=== PATIENT | male | born 2000 | race Caucasian/White ===

== ENCOUNTER 2023-12-24 19:56 | Inpatient (IN) | payer OTHER ==
[~2023-12-24] VITALS: Ht 167.6 cm; Wt 54.4 kg
[2023-12-24] MEDS: TETANUS, DIPHTHERIA, PERTUSSIS VAC/PF 0.5ML (>10YR OLD) IM ONE (21:27)
[2023-12-24 23:38] LABS: BASOPHILS % 0.4 % (0.0-2.0); EOSINOPHILS % 0.1 % (0.0-5.0); HEMATOCRIT. 39.7 % (42.0-52.0); HEMOGLOBIN. 13.4 g/dL (14.0-18.0); LYMPHOCYTES % 16.2 % (20.0-50.0); MEAN CORPUSCULAR HEMOGLOBIN 29.7 pg (28.0-32.0); MEAN CORPUSCULAR HGB CONC 33.7 g/dL (31.0-37.0); MEAN CORPUSCULAR VOLUME 87.9 fL (80.0-94.0); MEAN PLATELET VOLUME 7.6 fl (7.4-10.4); NEUTROPHILS % 77.3 % (40.0-76.0); PLATELET 179 x1000/uL (130-400); RED BLOOD CELL COUNT 4.52 mill/uL (4.7-6.1); RED CELL DISTRIBUTION WIDTH 13.8 % (11.6-14.6); WHITE BLOOD COUNT 8.8 x1000/uL (4.5-11.0)
[2023-12-24 23:43] LABS: CHLORIDE 106 mEq/L (98-107); POTASSIUM 3.2 mEq/L (3.5-5.1); SODIUM 138 mEq/L (136-145)
[2023-12-24 23:44] LABS: CARBON DIOXIDE 24 mEq/L (21-32)
[2023-12-24 23:49] LABS: CREATININE 1.1 mg/dL (0.6-1.3); GLUCOSE 91 mg/dL (70-105); UREA NITROGEN BLOOD 13 mg/dL (9-23)
[2023-12-25] MEDS: ACETAMINOPHEN 325MG TABLET PO ONE (04:45)
[2023-12-25] MEDS: IOHEXOL-300 100 ML BOTTLE ONE (06:08)
[2023-12-25 12:00] VITALS: BP_SYST 118; BP_SYST 90; BP_DIAS 50; BP_DIAS 70; PULSE 64; PULSE 70; RESP 18; TEMP 100.9; TEMP 98
[2023-12-25] MEDS ORDERED: ONDANSETRON HCL 4MG/2ML INJ IV PRN (14:45)
[2023-12-25] MEDS ORDERED: IPRATROPIUM/ALBUTEROL 0.5-3(2.5)MG/3ML NEB HHN PRN (14:45)
[2023-12-25] MEDS ORDERED: CLONIDINE 0.1MG TABLET PO PRN (14:45)
[2023-12-25] MEDS ORDERED: MAGNESIUM/ALUMINUM HYDROXIDE/SIMETHICONE 30ML UDC PO PRN (14:45)
[2023-12-25] MEDS ORDERED: ACETAMINOPHEN 325MG TABLET PO PRN (14:45)
[2023-12-25] MEDS ORDERED: GUAIFENESIN 200MG/10ML SUGAR FREE UDC PO PRN (14:45)
[2023-12-25] MEDS ORDERED: DOCUSATE SODIUM 100MG CAPSULE PO PRN (14:45)
[2023-12-25] MEDS ORDERED: ACETAMINOPHEN 650MG/20.3ML UDC GT PRN (14:45)
[2023-12-25] MEDS: POTASSIUM CHLORIDE 20MEQ/PACKET PO NR (16:01)
[2023-12-25] MEDS: KETOROLAC 15MG/ML VIAL IV PRN (16:02)
[2023-12-25] MEDS ORDERED: LACTATED RINGERS 1,000 ML IV SCH (17:15)
[2023-12-25 17:32] LABS: CLARITY URINE CLEAR (CLEAR); COLOR URINE YELLOW (YELLOW); GLUCOSE URINE NEGATIVE (NEGATIVE); KETONES URINE 2+ (NEGATIVE); LEUKOCYTE ESTERASE URINE NEGATIVE (NEGATIVE); NITRITE URINE NEGATIVE (NEGATIVE); OCCULT BLOOD URINE NEGATIVE (NEGATIVE); PH URINE 5.5 (4.5-8.0); PROTEIN URINE 1+ (NEGATIVE); SPECIFIC GRAVITY URINE 1.031 (1.005-1.030)
[2023-12-25 17:39] LABS: *AMPHETAMINES SCREEN URINE NEGATIVE (NEGATIVE); *BARBITURATES SCREEN URINE NEGATIVE (NEGATIVE); *BENZODIAZEPINES SCREEN URINE NEGATIVE (NEGATIVE)
[2023-12-25 17:40] LABS: CANNABINOID URINE SCREEN PRESUMPTIVE POSITIVE (NEGATIVE); ECSTASY MDMA SCREEN URINE NEGATIVE (NEGATIVE); PHENCYCLIDINE URINE SCREEN NEGATIVE (NEGATIVE)
[2023-12-25 17:44] LABS: *COCAINE SCREEN URINE NEGATIVE (NEGATIVE); METHADONE URINE SCREEN NEGATIVE (NEGATIVE); OPIATES URINE SCREEN NEGATIVE (NEGATIVE)
[2023-12-25 17:59] LABS: BACTERIA URINE 1+; RBC URINE NONE SEEN /hpf (0-2); SQUAMOUS EPITHELIAL CELL URINE FEW /lpf (RARE/1+); WBC URINE 0-2 /hpf (0-2)
[2023-12-25] MEDS: FOLIC ACID 1 MG, THIAMINE HCL 100 MG, MVI, ADULT NO.1 10 ML in DEXTROSE 5% WATER 1,000 ML IV ONE (18:54)
[2023-12-25 20:00] VITALS: BP 115/67; PULSE 68; RESP 18; TEMP 98.1
[2023-12-25 22:17] LABS: IRON 107 ug/dL (65-175)
[2023-12-25 22:18] LABS: ETHANOL BLOOD < 10 mg/dL (<10)
[2023-12-25 22:20] LABS: PHOSPHORUS 3.2 mg/dL (2.5-4.9); TOTAL IRON BINDING CAPACITY 195 ug/dl (250-425)
[2023-12-25 22:35] LABS: FERRITIN 104 ng/mL (22-322)
[2023-12-25 22:36] LABS: FOLIC ACID (FOLATE) SERUM > 20.00 ng/mL (>5.38); VITAMIN B12 SERUM 504 pg/mL (211-911)
[2023-12-26] VITALS: BP 135/74; PULSE 55; RESP 18; TEMP 97.5
[2023-12-26 00:10] LABS: CREATINE KINASE 430 IU/L (46-171); TROPONIN I HIGH SENSITIVITY 12 ng/L (3.0-53)
[2023-12-26] MEDS: PANTOPRAZOLE 40MG DR TABLET PO SCH (07:54)
[2023-12-26 08:40] VITALS: BP 121/70; PULSE 72; RESP 20; TEMP 98
[2023-12-26 08:58] LABS: BASOPHILS % 0.5 % (0.0-2.0); EOSINOPHILS % 1.6 % (0.0-5.0); HEMATOCRIT. 45.4 % (42.0-52.0); HEMOGLOBIN. 15.2 g/dL (14.0-18.0); LYMPHOCYTES % 44.7 % (20.0-50.0); MEAN CORPUSCULAR HEMOGLOBIN 29.4 pg (28.0-32.0); MEAN CORPUSCULAR HGB CONC 33.4 g/dL (31.0-37.0); MEAN PLATELET VOLUME 8.7 fl (7.4-10.4); MONOCYTES % 7.9 % (2.0-8.0); NEUTROPHILS % 45.3 % (40.0-76.0); PLATELET 183 x1000/uL (130-400); RED BLOOD CELL COUNT 5.16 mill/uL (4.7-6.1); RED CELL DISTRIBUTION WIDTH 13.8 % (11.6-14.6); WHITE BLOOD COUNT 4.1 x1000/uL (4.5-11.0)
[2023-12-26 10:14] LABS: T4 FREE 1.26 ng/dL (0.89-1.76); THYROID STIMULATING HORMONE 1.04 uIU/mL (0.55-4.78)
[2023-12-26 12:00] VITALS: BP 109/71; PULSE 62; RESP 18; TEMP 98.2
[2023-12-26 13:44] VITALS: BP 109/71; PULSE 62; TEMP 98.2; O2SAT 100
== END 2023-12-26 14:10 | disposition home or self-care (01) | DRG 605 ==
LOC: ER 19:56 → 5WST 12-25 04:31 → EDBEDREQ 12-25 04:48 → EDBEDREQTM 12-25 04:48 → 6WST 12-25 11:39
PROVIDERS: ADMIT Internal Medicine; ATTEND Internal Medicine
DX: S50.811A Abrasion of right forearm, initial encounter (principal); E87.6 Hypokalemia; R23.8 Other skin changes; H57.04 Mydriasis; F19.10 Other psychoactive substance abuse, uncomplicated; D63.8 Anemia in other chronic diseases classified elsewhere; V89.2XXA Person injured in unspecified motor-vehicle accident, traffic, initial encounter; Y92.410 Unspecified street and highway as the place of occurrence of the external cause; Y93.89 Activity, other specified; Y99.8 Other external cause status
CPT/HCPCS: 36415; 71045; 71101; 71260; 72141; 73090; 73130; 73552; 74177; 80048; 80061; 80305; 80320; 81003; 82550; 82607; 82728; 82746; 83036; 83540; 83550; 83605; 83735; 84100; 84145; 84439; 84443; 84484; 85025; 85379; 99285; J1885; J3411; J3490; J7070; Q9967; G0480